=== PATIENT | male | born 1960 | race Hispanic/Latino ===

== ENCOUNTER 2023-03-31 07:36 | Day surgery (SDC) | payer OTHER, SELFPAY ==
[2023-02-20 15:02] VITALS: BMI 31.1
[2023-03-17 10:55] VITALS: BMI 30.6
--- NOTE | 2023-03-28 16:50 | PM.HPGS ---
History of Present Illness History of Present Illness Consent: Risks, benefits, and alternatives have been discussed and questions answered. Patient agrees to proceed with procedure. Chief complaint: History of Colon Polyps Narrative: Ryan Horton is a 63 year old male Referred for colon cancer screening. He has a history of polyps. His last colonoscopy was 5 years ago, at which time 4 polyps were removed Review of Systems Review of Systems: All systems reviewed & are unremarkable except as noted in HPI and below PMFSH Past Medical History Medical History Diabetes Hyperlipidemia Social History Social History Smoking status: Never smoker Alcohol intake: current Substance use: never Substance use type: does not use Living arrangements: with family Spiritual care concerns: No Meds Home Medications and Allergies Home Medications Medication Instructions Recorded Confirmed Type atorvastatin 40 mg tablet 40 mg PO DAILY 03/17/23 03/31/23 History celecoxib 200 mg capsule 200 mg PO DAILY 03/17/23 03/31/23 History metformin 500 mg tablet 500 mg PO BID 03/17/23 03/31/23 History venlafaxine 150 mg 150 mg PO DAILY 03/17/23 03/31/23 History capsule,extended release 24 hr Allergies Allergy/AdvReac Type Severity Reaction Status Date / Time No Known Allergies Allergy Verified 03/31/23 08:14 Exam Resp: Auscultation: clear to auscultation bilaterally Cardio: Rate: regular rate Rhythm: regular rhythm GI: GI Palp: Yes Soft to palpation and No Tenderness to palpation present (GI) Assessment and Plan Assessment and plan (1) Colon cancer screening: Code(s): Z12.11 - Encounter for screening for malignant neoplasm of colon Status: Acute Assessment and Plan: Colonoscopy with possible biopsy or polypectomy or cautery or injection of substances.
--- NOTE | 2023-03-31 06:55 | P.PNAN_ITS ---
Anes - Initial Pre Proc Eval Procedure: Operation Date: 03/31/23 09:30 Proposed Procedures p Diagnostic Colonoscopy - Adams Delarosa MD Date/Time: 03/31/23 06:55 Surgeon: Adams Delarosa MD Pre Op Diagnosis: History of Colon Polyps Patient Data Age: 63 Gender: M Height: 1.75 m Weight: 94 kg Allergies Allergy/AdvReac Type Severity Reaction Status Date / Time No Known Allergies Allergy Verified 03/31/23 08:14 Home Medications Medication Instructions Recorded Confirmed Type atorvastatin 40 mg tablet 40 mg PO DAILY 03/17/23 03/31/23 History celecoxib 200 mg capsule 200 mg PO DAILY 03/17/23 03/31/23 History metformin 500 mg tablet 500 mg PO BID 03/17/23 03/31/23 History venlafaxine 150 mg 150 mg PO DAILY 03/17/23 03/31/23 History capsule,extended release 24 hr Patient hx anesthesia problems: none Family hx anesthesia problems: none Results Review: All pre-operative results and documents have been reviewed as part of the pre- operative evaluation. PMFSH Past Medical History Medical History Diabetes Hyperlipidemia Social History Social History Smoking status: Never smoker Alcohol intake: current Substance use: never Substance use type: does not use Living arrangements: with family Spiritual care concerns: No Anes - Eval Final PreProcedure Day of Procedure 03/31/23 06:55 Patient weight: obese Heart: regular rate and rhythm Lungs: clear to auscultation Airway: Mallampati scale class II Neurological: alert and oriented Last oral intake: >/= 8 hours ASA classification: III Emergent: no Anesthetic plan: proceed Anesthesia type and monitoring: general GIVS and standard monitoring Results Review: All pre-operative results and documents have been reviewed as part of the pre- operative evaluation. Informed Consent: The patient's anesthetic plan and its attendant risks and benefits were discussed with the patient/family/POA. Questions were solicited and answers provided to the satisfaction of the patient/family/POA.
[2023-03-31 08:16] VITALS: BP 134/94; PULSE 95; RESP 16; TEMP 36.9; O2SAT 96
[2023-03-31 09:01] LABS: Glucose Point of Care 107 mg/dl (65-105)
[2023-03-31] MEDS: LACTATED RINGERS 1,000 ML 150 ML IV CONT (09:07)
[2023-03-31 09:24] VITALS: BP 95/65; PULSE 93; RESP 16; O2SAT 93
[2023-03-31 09:34] VITALS: BP 104/68; PULSE 87; RESP 18; O2SAT 95
[2023-03-31 09:44] VITALS: BP 126/74; PULSE 78; RESP 16; O2SAT 98
--- NOTE | 2023-03-31 12:04 | WPDANESPN ---
Anes - Prog Note Post-Op Date/Time: 03/31/23 12:04 Cardiovascular status: normal Respiratory status: normal Airway patency: baseline Mental status: baseline Post-Op hydration status: normal Vital Signs: Last Vital Signs Temp 36.9 C 03/31/23 08:16 Pulse 78 03/31/23 09:44 Resp 16 03/31/23 09:44 BP 126/74 03/31/23 09:44 Pulse Ox 98 03/31/23 09:44 O2 Del Method Room Air 03/31/23 09:44 Pain Score (VAS): 0 I/O: Intake & Output 03/30/23 03/31/23 03/31/23 23:59 07:59 15:59 Intake Total 400 Balance 400 03/31/23 08:27 POC Capillary Glucose 107 H Post-procedural complaints: none Patient Feedback: Patient satisfied with anesthetic care. Other Findings: Patient vital signs back to baseline. Patient denies nausea and vomiting. Patient's pain under control. Patient OK for discharge.
== END 2023-03-31 10:05 | disposition home or self-care (01) ==
PROVIDERS: PCP Internal Medicine; Visit Provider Internal Medicine Gastroenterology
PROC: 0DJD8ZZ Inspection of Lower Intestinal Tract, Via Natural or Artificial Opening Endoscopic (ICD-10-PCS; CPT 45378; principal; 2023-03-31 09:30)
DX: Z12.11 Encounter for screening for malignant neoplasm of colon (principal)
CPT/HCPCS: 45378

== ENCOUNTER 2024-11-29 16:12 | Outpatient (CLI) | payer MEDICARE, SELFPAY ==
--- NOTE | ~2024-11-29 | US_ITS ---
EXAMINATION: US scrotum doppler DATE: 11/29/2024 16:53 INDICATION: Palpable abnormality at the scrotum. Other specified disorders of female genitals. TECHNIQUE: Testicular sonogram utilizing grayscale and Doppler COMPARISON: None. FINDINGS: The right testis measures 4.0 x 1.7 x 2.9 cm. The left testis measures 3.6 x 2.2 x 2.6 cm. Symmetric normal grayscale appearance to both testes. There is normal vascular flow to both testes. 3 mm anecho ic right epididymal cyst. The right epididymis is otherwise normal with normal vascular flow. The lef t epididymis is normal with normal vascular flow. There is no hydrocele. Asymmetric mild right varico kathy. IMPRESSION: 1. 3 mm right epididymal cyst which could potentially represent the reported palpable abnormality of concern. Otherwise normal bilateral testes and epididymides with no other masses or abnormal fluid c ollections identified. 2. Asymmetric mild right varicocele. Could consider ultrasound or CT of the abdomen to assess for pot ential retroperitoneal masses or lymphadenopathy impinging along the more proximal right gonadal vein . Reviewed, dictated and finalized at location B. IMPRESSION: 1. 3 mm right epididymal cyst which could potentially represent the reported p alpable abnormality of concern. Otherwise normal bilateral testes and epididymi danika with no other masses or abnormal fluid collections identified. 2. Asymmetric mild right varicocele. Could consider ultrasound or CT of the abd omen to assess for potential retroperitoneal masses or lymphadenopathy impingin g along the more proximal right gonadal vein.
--- OUTSIDE RECORDS SUMMARY | 2024-11-29 18:28 | XMS_ITS | Data Portability ---
Author Organization [place] - [facility], Main Office Address [address] [place] [address] Assessment Encounter Date Assessment Date Assessment LastModified by Organization Details LastModified Time 07/24/2023 07/24/2023 This note is dictated and transcribed by [employer]lex Direct Software. Confidential Secretary variances may occur. Despite proofreading, typographical errors may occur. Occasional wrong-word or 'znmca-z-wcei' substitutions may have occurred due to the inherent limitations of voice recording. Read the chart carefully and recognize, using context, where substitutions have occurred. [email or web address] Not available 07/24/2023 10:23:13 Plan of Treatment Reminders Order Date Submit Date Provider Last Modified By Organization Details Last Modified Time Details Appointments None recorded. Lab lipid panel, serum [email or web address] [place] [address] - Outpatient Lab, [address] [place], [address], 4 10:16:37 CMP, serum or plasma [email or web address] [place] [address] Outpatient Lab, [address] [place], [address], 4 10:16:38 CBC w/ auto diff [email or web address] Outpatient Lab, [address] [place], [address], 4 10:16:38 glycohemogl obin, total, blood [id number] Outpatient Lab, [address] [place], [address], 4 10:16:37 HbA1c (hemoglobin A1c), blood [id number] [place] [address] Outpatient Lab, [address] [place], [address], 4 12:05:54 microalbumi n/creatinin e, mass ratio, urine [id number] [place] [address] Outpatient Lab, [address] [place], [address], 4 12:05:54 CMP, serum or plasma [id number] [place] [address] Outpatient Lab, [address] [place], [address], 4 12:05:53 CBC w/ auto diff [email or web address] [place] [address] Outpatient Lab, [address] [place], [address], 4 12:05:53 T4, free, serum [email or web address] [place] [address] Outpatient Lab, [address] [place], [address], 4 12:05:54 TSH, serum or plasma [id number] [place] [address] Outpatient Lab, [address] [place], [address], 4 12:05:54 lipid panel, serum [id number] [place] [address] Outpatient Lab, [address] [place], [address], 4 12:05:54 PSA, serum or plasma 2023 024 [email or web address] [facility] - Outpatient Lab, [address], [place], [address], 4 12:05:[address] referral - *PLEASE CALL PT TO SCHEDULE APPT...THAN K YOU!* 2022 023 [email or web address] Katina Guaman MD (Dermatology) , [address], [facility], [place], [address], 4 08:30:53 Procedures None recorded. Surgeries None recorded. Imaging None recorded. Medication Orders triamcinolo ne acetonide 0.1 % topical cream 2022 023 [facility]/Pharmacy #[id number], [address], [place], [address], 3 10:10:35 ketoconazol e 2 % topical cream 2022 023 [id number], [address], [place], [address], 3 10:38:21 miconazole nitrate 2 % topical powder [email or web address]/Pharmacy #[id number], [address], [place], [address], 3 10:38:28 Patient TargetsNo targets recorded. Patient Instructions Encounter Date Encounter Id Patient Instructions Last Modified By Organization Details Last Modified Time 08/07/2023 [id number] advance care planning: care instructions [email or web address] Not available 08/07/2023 10:52:28 advance directiv es: care instructions [email or web address] Not available 08/07/2023 10:52:28 [place] Advance Directives Not available 08/07/2023 10:52:28 risk assessment* RICKEY Not available 08/07/2023 15:25:18 Personalized Hea lt Plan and Screening Recommendations Advance Directives - Do you have one? No Advance Directives - Do we have your advance directive on file in your health record? Primary Prevention/Interven tion (prevents or decreases the chance of common diseases from occurring) Smoking Risk: Smoker Refer to attached smoking cessation handouts Refer to attached handouts and prescription will be sent to pharmacy Continue to consider stopping smoking and call if we can assist you Alcohol Misuse Screening: Negative Weight: Appropriate Overwei ght continue your current weight loss efforts try to lose 5% of your body weight try to lose 10% of your body weight Physical activity: Need more exercise/physical activity Nutrition: Good Average Fall Risk (screened today): Low Vaccines Pneumococcal: Influenza: Ordered Recommended today Chronic Disease Risks Stroke: Low Risk Intermediate Risk I have no recommendations Act corazon diagnosis, Continue current treatment plan Heart Attack: Low risk Intermediate Risk I have no recommendations Act corazon diagnosis, Continue current treatment plan Clogging of the Arteries: Low risk Intermediate Risk I have no recommendations Act corazon diagnosis, Continue current treatment plan Diabetes: Low Risk Intermediate Risk Active diagnosis, Continue current treatment plan Secondary Prevention/Interven tion (detects treatable diseases before they may cause symptoms, disability, or ) Prostate Cancer Screening: Colon Cancer Screening: Colonoscopy Date Screening Last Performed: __2022 Eye Disease Screening: Dementia Risk: Low I have no recommendations Depression Screening: Negative Active diagnosis, Continue current treatment plan [email or web address] Not available 08/07/2023 10:47:46 Wellness evaluat ion risk assessment stable. Follow-up for type 2 diabetes, hyperlipidemia, mild depression and obesity class one. Clinically stable. Will hold on any blood work at this time. Had blood work performed back in February. Cholesterol is 143 HDL 45 LDL of 80. The hemoglobin A1c was 5.4. Continue on current Rx did get a flu shot today. Follow-up in six months. Portions of the record may have been created with voice recognition software. Occasional wrong-word or s ound-a-like substitutions may have occurred due to the inherent limitations of voice recognition software. Read the chart carefully and recognize, using context, where substitutions have occurred. Need to get a copy of the colonoscopy done at [facility] earlier in the year. [email or web address] Not available 08/07/2023 10:52:10 01/26/2024 [id number] Follow-up for hyperlipidemia, type 2 diabetes, depression all clinically stable. Also followed up for obesity class one. Will need blood work in form of CBC, CMP, lipid, thyroid,HAIC,Micro A and PSA level. If stated to the patient should have these done at the end of February since that would be a year. Otherwise is clinically doing well. Will follow-up in six months. Is due for colonoscopy. Needs a follow-up colonoscopy Next Appointment: 6 Months Approximate Date: 07/24/2024 Portions of the record may have been created with voice recognition software. Occasional wrong-word or s ound-a-like substitutions may have occurred due to the inherent limitations of voice recognition software. Read the chart carefully and recognize, using context, where substitutions have occurred. [email or web address] Not available 01/26/2024 12:09:05 08/12/2024 [id number] Llow-up for diabetes mellitus type 2, hyperlipidemia, depressive disorder all clinically stable. Overall is doing well. Check blood work consisting of a hemoglobin A1c, lipid panel, CMP and CBC. Continue on current Rx follow-up in six months. Follow Up: 6 Months Approximate Date: 02/08/2025 Portions of the record may have been created with voice recognition software. Occasional wrong-word or s ound-a-like substitutions may have occurred due to the inherent limitations of voice recognition software. Read the chart carefully and recognize, using context, where substitutions have occurred. Created: Bebeto Clarke M.D. 08.12.2024 10:31 AM [email or web address] Not available 08/12/2024 11:31:45 11/18/2024 [id number] Testicular mass, hyperlipidemia, diabetes obesity class one. Will get an ultrasound of the testicle to rule out any other abnormalities. Otherwise is clinically stable. Already has a follow-up appointment. Additional Orders - Directives - Recommendations 1. Ultrasound of testicle and scrotal area for right scrotal and epididymal mass Keep Appointment: [facility] 02 10 2025 10:00 AM [place] Portions of record are template driven. When necessary additional context will be provided. Additionally some portions have been created with voice recognition software. Occasional wrong-word or s ound-a-like substitutions may have occurred due to the inherent limitations of voice recognition software. Read the chart carefully and recognize, using context, where substitutions may have occurred. Created: Bebeto Clarke M.D. 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 Referral for X erosis due to atopic dermatitis *PLEASE CALL PT TO SCHEDULE APPT...THANK YOU!* Referring Physician: Khari Dozier, Podiatric Surgery, Encounter Date: 07/24/2023 Results Created Date Observation Date Name Description Value Unit Range Abnormal Flag Note LastModifiedBy Organization Detail LastModifiedTime 06/26/2007/29/2023 FUNGU S CULTU RE WITH STAIN fungus stain Final report abnormal Not Available [facility] (Lab) [address] [place], [address], 07/29/2023 12:12:17 06/26/2007/29/2023 FUNGU S CULTU RE WITH STAIN result 1 Hyphae observ ed abnormal Not Available [facility] (Lab) [address] [place], [address], 07/29/2023 12:12:17 06/26/2007/29/2023 FUNGU S CULTU RE WITH STAIN culture, fungal Final report Not Available [facility] (Lab) [address] [place], [address], 07/29/2023 12:12:17 06/26/2007/29/2023 FUNGU S CULTU RE WITH STAIN result 1 Commen t abnormal No yeast or mold isola rangel after 4 weeks . Perfo [place]med at: [place] [address] Lab Direc tor: Soto campbell PhD, Phone : [phone] Not Available [facility] (Lab) [address] [place], [address], 07/29/2023 12:12:17 02/17/2002/18/2024 LIPID PANEL , STAND EDNA cholesterol, total 149 mg/dL <200 normal Not Available [facility] [address], [address], 02/18/2024 13:16:49 02/17/20 24 02/18/2024 LIPID PANEL , STAND EDNA HDL cholesterol 46 mg/dL > or = 40 normal Not Available [address], [address], 02/18/2024 13:16:49 02/17/20 24 02/18/2024 LIPID PANEL , STAND EDNA triglyceride s 126 mg/dL <150 normal Not Available [facility] [address], [address], 02/18/2024 13:16:49 02/17/20 24 02/18/2024 LIPID PANEL , STAND EDNA LDL-choleste rol 80 mg/dL _(zhanna c) normal Refer ence range : <100 Gypsy able range <100 mg/dL for prima ry preve ntion ; <70 mg/dL for patie nts with CHD or diabe tic patie nts with > or = 2 CHD risk facto rs. LDL-C is now calcu lated using the Claudia jay-Hop kins calcu missael n, which is a valid ated novel metho d provi ding josep r accur acy than the Fried blaze equat ion in the estim ation of LDL-C . Claudia jay SS et al. EDWARD. 2013; 310(1 9): 2061- 2068 (http ://ed ucati on.Qu Sylvie SourceThought. com/f aq/FA Q164) Not Available [address], [address], 02/18/2024 13:16:49 02/17/20 24 02/18/2024 LIPID PANEL , STAND EDNA chol/HDLC ratio 3.2 (calc ) <5.0 normal Not Available [facility] [address], [address], 02/18/2024 13:16:49 02/17/20 24 02/18/2024 LIPID PANEL , STAND EDNA non HDL cholesterol 103 mg/dL _(zhanna c) <130 normal For patie nts with diabe carmen plus 1 major ASCVD risk facto r, treat ing to a non-H DL-C goal of <100 mg/dL (LDL- C of <70 mg/dL ) is truong campos n. Not Available [place] [address] [place], [address], 02/18/2024 13:16:49 02/17/20 24 02/18/2024 ALBUM IN, RANDO M URINE W/CRE ATINI NE creatinine, random urine 126 mg/dL 20-320 normal Not Available [place] [address] [address], [place], [address], 02/18/2024 13:16:51 02/17/20 24 02/18/2024 ALBUM IN, RANDO M URINE W/CRE ATINI NE albumin, urine 0.6 mg/dL see note: normal Refer ence Range : Refer ence Range Not estab lishe d Not Available [place] [address] [facility] [place], [address], 02/18/2024 13:16:51 02/17/20 24 02/18/2024 ALBUM IN, RANDO M URINE W/CRE ATINI NE albumin/crea tinine ratio, random urine 5 mg/g_ creat <30 normal The ADA defin es abnor malit ies in album in excre tion as follo ws: Album inuri a Categ ory Resul t (mg/g creat inine ) Deepthi l to Mildl y incre ased <30 Moder ately incre ased 30-29 9 Sever loyda incre ased > OR = 300 The ADA recom mends that at least two of three speci mens colle cted withi n a 3-6 month perio d be abnor mal befor e consi uma g a patie nt to be withi n a diagn ostic categ ory. Not Available [place] [address] [place], [address], 02/18/2024 13:16:51 02/17/20 24 02/18/2024 COMPR EHENS CORAZON METAB OLIC PANEL glucose 98 mg/dL 65-99 normal Fasti ng refer ence inter devyn Not Available [address], [address], 02/18/2024 13:16:52 02/17/20 24 02/18/2024 COMPR EHENS CORAZON METAB OLIC PANEL urea nitrogen (BUN) 11 mg/dL 7-25 normal Not Available [address], [address], 02/18/2024 13:16:52 02/17/20 24 02/18/2024 COMPR EHENS CORAZON METAB OLIC PANEL creatinine 0.73 mg/dL 0.70-1 .35 normal Not Available [address], [address], 02/18/2024 13:16:52 02/17/20 24 02/18/2024 COMPR EHENS CORAZON METAB OLIC PANEL eGFR 100 mL/mi n/1.7 3m2 > or = 60 normal Not Available [address], [address], 02/18/2024 13:16:52 02/17/20 24 02/18/2024 COMPR EHENS CORAZON METAB OLIC PANEL BUN/creatini ne ratio SEE NOTE: (calc ) 6-22 Not Repor rangel: BUN and Creat inine are withi n refer ence range . Not Available [address], [address], 02/18/2024 13:16:52 02/17/20 24 02/18/2024 COMPR EHENS CORAZON METAB OLIC PANEL sodium 140 mmol/ L 135-14 6 normal Not Available [address], [address], 02/18/2024 13:16:52 02/17/20 24 02/18/2024 COMPR EHENS CORAZON METAB OLIC PANEL potassium 4.0 mmol/ L 3.5-5. 3 normal Not Available [facility] [address] [place], [address], 02/18/2024 13:16:52 02/17/20 24 02/18/2024 COMPR EHENS CORAZON METAB OLIC PANEL chloride 103 mmol/ L 98-110 normal Not Available [address] [place], [address], 02/18/2024 13:16:52 02/17/20 24 02/18/2024 COMPR EHENS CORAZON METAB OLIC PANEL carbon dioxide 29 mmol/ L 20-32 normal Not Available [address], [address], 02/18/2024 13:16:52 02/17/20 24 02/18/2024 COMPR EHENS CORAZON METAB OLIC PANEL calcium 9.3 mg/dL 8.6-10 .3 normal Not Available [address], [address], 02/18/2024 13:16:52 02/17/20 24 02/18/2024 COMPR EHENS CORAZON METAB OLIC PANEL protein, total 6.8 g/dL 6.1-8. 1 normal Not Available [address], [address], 02/18/2024 13:16:52 02/17/20 24 02/18/2024 COMPR EHENS CORAZON METAB OLIC PANEL albumin 4.0 g/dL 3.6-5. 1 normal Not Available [address] [place], [address], 02/18/2024 13:16:52 02/17/20 24 02/18/2024 COMPR EHENS CORAZON METAB OLIC PANEL globulin 2.8 g/dL_ (calc ) 1.9-3. 7 normal Not Available [address], [address], 02/18/2024 13:16:52 02/17/20 24 02/18/2024 COMPR EHENS CORAZON METAB OLIC PANEL albumin/glob ulin ratio 1.4 (calc ) 1.0-2. 5 normal Not Available [address], [address], 02/18/2024 13:16:52 02/17/20 24 02/18/2024 COMPR EHENS CORAZON METAB OLIC PANEL bilirubin, total 0.7 mg/dL 0.2-1. 2 normal Not Available [address], [address], 02/18/2024 13:16:52 02/17/20 24 02/18/2024 COMPR EHENS CORAZON METAB OLIC PANEL alkaline phosphatase 113 U/L 35-144 normal Not Available [address], [address], 02/18/2024 13:16:52 02/17/20 24 02/18/2024 COMPR EHENS CORAZON METAB OLIC PANEL AST 17 U/L 10-35 normal Not Available [address], [address], 02/18/2024 13:16:52 02/17/20 24 02/18/2024 COMPR EHENS CORAZON METAB OLIC PANEL ALT 20 U/L 9-46 normal Not Available [address], [address], 02/18/2024 13:16:52 02/17/20 24 02/18/2024 CBC (INCL UDES DIFF/ PLT) white blood cell count 7.5 thous and/u L 3.8-10 .8 normal Not Available [address], [address], 02/18/2024 13:16:53 02/17/20 24 02/18/2024 CBC (INCL UDES DIFF/ PLT) red blood cell count 5.23 daquan on/uL 4.20-5 .80 normal Not Available [address], [address], 02/18/2024 13:16:53 02/17/20 24 02/18/2024 CBC (INCL UDES DIFF/ PLT) hemoglobin 16.4 g/dL 13.2-1 7.1 normal Not Available [address], [address], 02/18/2024 13:16:53 02/17/20 24 02/18/2024 CBC (INCL UDES DIFF/ PLT) hematocrit 50.3 % 38.5-5 0.0 high Not Available [address], [address], 02/18/2024 13:16:53 02/17/20 24 02/18/2024 CBC (INCL UDES DIFF/ PLT) MCV 96.2 fL 80.0-1 00.0 normal Not Available [address], [address], 02/18/2024 13:16:53 02/17/20 24 02/18/2024 CBC (INCL UDES DIFF/ PLT) MCH 31.4 pg 27.0-3 3.0 normal Not Available [address], [address], 02/18/2024 13:16:53 02/17/20 24 02/18/2024 CBC (INCL UDES DIFF/ PLT) MCHC 32.6 g/dL 32.0-3 6.0 normal Not Available [address], [address], 02/18/2024 13:16:53 02/17/20 24 02/18/2024 CBC (INCL UDES DIFF/ PLT) RDW 12.4 % 11.0-1 5.0 normal Not Available [address], [address], 02/18/2024 13:16:53 02/17/20 24 02/18/2024 CBC (INCL UDES DIFF/ PLT) platelet count 271 thous and/u L 140-40 0 normal Not Available [address], [address], 02/18/2024 13:16:53 02/17/20 24 02/18/2024 CBC (INCL UDES DIFF/ PLT) MPV 10.0 fL 7.5-12 .5 normal Not Available [address], [address], 02/18/2024 13:16:53 02/17/20 24 02/18/2024 CBC (INCL UDES DIFF/ PLT) absolute neutrophils 4553 cells /uL 1500-7 800 normal Not Available [address], [address], 02/18/2024 13:16:53 02/17/20 24 02/18/2024 CBC (INCL UDES DIFF/ PLT) absolute lymphocytes 1770 cells /uL 850-39 00 normal Not Available [address], [address], 02/18/2024 13:16:53 02/17/20 24 02/18/2024 CBC (INCL UDES DIFF/ PLT) absolute monocytes 698 cells /uL 200-95 0 normal Not Available [address], [address], 02/18/2024 13:16:53 02/17/20 24 02/18/2024 CBC (INCL UDES DIFF/ PLT) absolute eosinophils 428 cells /uL 15-500 normal Not Available [address], [address], 02/18/2024 13:16:53 02/17/20 24 02/18/2024 CBC (INCL UDES DIFF/ PLT) absolute basophils 53 cells /uL 0-200 normal Not Available [facility] [address] [address], [place], [address], 02/18/2024 13:16:53 02/17/20 24 02/18/2024 CBC (INCL UDES DIFF/ PLT) neutrophils 60.7 % normal Not Available [address], [address], 02/18/2024 13:16:53 02/17/20 24 02/18/2024 CBC (INCL UDES DIFF/ PLT) lymphocytes 23.6 % normal Not Available [facility] [address], [address], 02/18/2024 13:16:53 02/17/20 24 02/18/2024 CBC (INCL UDES DIFF/ PLT) monocytes 9.3 % normal Not Available [facility] [address], [address], 02/18/2024 13:16:53 02/17/20 24 02/18/2024 CBC (INCL UDES DIFF/ PLT) eosinophils 5.7 % normal Not Available [address], [address], 02/18/2024 13:16:53 02/17/20 24 02/18/2024 CBC (INCL UDES DIFF/ PLT) basophils 0.7 % normal Not Available [address], [address], 02/18/2024 13:16:53 02/17/20 24 02/18/2024 T4, FREE T4, free 1.0 NG/dL 0.8-1. 8 normal Not Available [address], [address], 02/18/2024 13:16:55 02/17/20 24 02/18/2024 PSA, TOTAL PSA, total 0.85 NG/mL < or = 4.00 normal The total PSA value from this assay syste m is stand ardiz ed again st the WHO stand edna. The test resul t will be appro ximat loyda 20% lower when chad red to the equim olar- stand ardiz ed total PSA (Tejada man Coult er). Chad rison of seria l PSA resul ts shoul d be inter prete d with this fact in mind. This test was perfo rmed using the Sieme ns chemi lumin escen t metho d. Value s obtai janette from diffe rent assay metho ds canno t be used inter stewart eably . PSA level s, regar dless of value , shoul d not be inter prete d as absol nondalton evide nce of the prese nce or absen ce of disea se. Not Available [facility] [address] [place], [address], 02/18/2024 13:16:56 02/17/2002/18/2024 TSH TSH 1.84 mIU/L 0.40-4 .50 normal Not Available [facility] [address] [place], [address], 02/18/2024 13:16:57 02/17/2002/18/2024 HEMOG LOBIN A1C hemoglobin A1C 5.8 %_of_ total _HGB <5.7 high For someo ne witho ut known diabe carmen, a hemog lobin A1c value betwe en 5.7% and 6.4% is consi stent with predi abete s and shoul d be confi rmed with a follo w-up test. For someo ne with known diabe carmen, a value <7% indic ates that their diabe carmen is well contr olled . A1c targe ts shoul d be indiv idual ized based on durat ion of diabe carmen, age, comor bid condi tions , and other consi derat ions. This assay resul t is consi stent with an incre ased risk of diabe carmen. Curre ntly, no conse nsus exist s regar ding use of hemog lobin A1c for diagn osis of diabe carmen for child maico. This test was perfo rmed on the Chris dorian c503 platf orm. Effec tive , a terry garcia in test platf orms from the [facility] Ar[facility] tect to the Chris dorian c503 may have shift ed HbA1c resul ts chad red to histo rical resul ts. Based on labor atory valid ation testi ng condu cted at [facility] , the Chris platf orm relat corazon to the Abbot t platf orm had an avera ge incre ase in HbA1c value of < or = 0.3%. This diffe rence is withi n accep rangel varia bilit y estab lishe d by the Gloria fang Glyco hemog lobin Stand ardiz ation Progr am. Note that not all indiv idual s will have had a shift in their resul ts and direc t chad rison s betwe en histo rical and curre nt resul ts for testi ng condu cted on diffe rent platf orms is not recom olivier d. Not Available [facility] [place] [address] [place], [address], 02/18/2024 13:16:58 08/30/20 24 08/31/2024 LIPID PANEL , STAND EDNA cholesterol, total 161 mg/dL <200 normal Not Available [facility] [place] [address] [place], [address], 08/31/2024 09:25:31 08/30/20 24 08/31/2024 LIPID PANEL , STAND EDNA HDL cholesterol 49 mg/dL > or = 40 normal Not Available [facility] [place] [address] [place], [address], 08/31/2024 09:25:31 08/30/20 24 08/31/2024 LIPID PANEL , STAND EDNA triglyceride s 75 mg/dL <150 normal Not Available [facility] [address] [place], [address], 08/31/2024 09:25:31 08/30/20 08/31/2024 LIPID PANEL , STAND EDNA LDL-choleste rol 96 mg/dL _(zhanna c) normal Refer ence range : <100 Gypsy able range <100 mg/dL for prima ry preve ntion ; <70 mg/dL for patie nts with CHD or diabe tic patie nts with > or = 2 CHD risk facto rs. LDL-C is now calcu lated using the Claudia n-Hop kins calcu missael n, which is a valid ated novel metho d provi ding josep r accur acy than the Fried blaze equat ion in the estim ation of LDL-C . Claudia n SS et al. EDWARD. 2013; 310(1 9): 2061- 2068 (http ://ed ucati on.AdScore. com/f aq/FA Q164) Not Available [facility] [place] [address] [place], [address], 08/31/2024 09:25:31 08/30/20 24 08/31/2024 LIPID PANEL , STAND EDNA chol/HDLC ratio 3.3 (calc ) <5.0 normal Not Available [facility] [place] [address] [address] , [place], [address], 08/31/2024 09:25:31 08/30/20 24 08/31/2024 LIPID PANEL , STAND EDNA non HDL cholesterol 112 mg/dL _(zhanna c) <130 normal For patie nts with diabe carmen plus 1 major ASCVD risk facto r, treat ing to a non-H DL-C goal of <100 mg/dL (LDL- C of <70 mg/dL ) is consi dered a thera peuti c optio n. Not Available [facility] [address] [place], [address], 08/31/2024 09:25:31 08/30/20 24 08/31/2024 COMPR EHENS CORAZON METAB OLIC PANEL glucose 98 mg/dL 65-99 normal Fasti ng refer ence inter devyn Not Available [facility] [place] [address] [place], [address], 08/31/2024 09:25:32 08/30/20 24 08/31/2024 COMPR EHENS CORAZON METAB OLIC PANEL urea nitrogen (BUN) 20 mg/dL 7-25 normal Not Available [address], [address], 08/31/2024 09:25:32 08/30/20 24 08/31/2024 COMPR EHENS CORAZON METAB OLIC PANEL creatinine 0.73 mg/dL 0.70-1 .35 normal Not Available [address], [address], 08/31/2024 09:25:32 08/30/20 24 08/31/2024 COMPR EHENS CORAZON METAB OLIC PANEL eGFR 100 mL/mi n/1.7 3m2 > or = 60 normal Not Available [address], [address], 08/31/2024 09:25:32 08/30/20 24 08/31/2024 COMPR EHENS CORAZON METAB OLIC PANEL BUN/creatini ne ratio SEE NOTE: (calc ) 6-22 Not Repor rangel: BUN and Creat inine are withi n refer ence range . Not Available [address], [address], 08/31/2024 09:25:32 08/30/20 24 08/31/2024 COMPR EHENS CORAZON METAB OLIC PANEL sodium 137 mmol/ L 135-14 6 normal Not Available [address], [address], 08/31/2024 09:25:32 08/30/20 24 08/31/2024 COMPR EHENS CORAZON METAB OLIC PANEL potassium 4.3 mmol/ L 3.5-5. 3 normal Not Available [address], [address], 08/31/2024 09:25:32 08/30/20 24 08/31/2024 COMPR EHENS CORAZON METAB OLIC PANEL chloride 104 mmol/ L 98-110 normal Not Available [address], [address], 08/31/2024 09:25:32 08/30/20 24 08/31/2024 COMPR EHENS CORAZON METAB OLIC PANEL carbon dioxide 26 mmol/ L 20-32 normal Not Available [address], [address], 08/31/2024 09:25:32 08/30/20 24 08/31/2024 COMPR EHENS CORAZON METAB OLIC PANEL calcium 9.1 mg/dL 8.6-10 .3 normal Not Available [address], [address], 08/31/2024 09:25:32 08/30/20 24 08/31/2024 COMPR EHENS CORAZON METAB OLIC PANEL protein, total 6.9 g/dL 6.1-8. 1 normal Not Available [address], [address], 08/31/2024 09:25:32 08/30/20 24 08/31/2024 COMPR EHENS CORAZON METAB OLIC PANEL albumin 4.1 g/dL 3.6-5. 1 normal Not Available [address], [address], 08/31/2024 09:25:32 08/30/20 24 08/31/2024 COMPR EHENS CORAZON METAB OLIC PANEL globulin 2.8 g/dL_ (calc ) 1.9-3. 7 normal Not Available [address], [address], 08/31/2024 09:25:32 08/30/20 24 08/31/2024 COMPR EHENS CORAZON METAB OLIC PANEL albumin/glob ulin ratio 1.5 (calc ) 1.0-2. 5 normal Not Available [address], [address], 08/31/2024 09:25:32 08/30/20 24 08/31/2024 COMPR EHENS CORAZON METAB OLIC PANEL bilirubin, total 0.6 mg/dL 0.2-1. 2 normal Not Available [address], [address], 08/31/2024 09:25:32 08/30/20 24 08/31/2024 COMPR EHENS CORAZON METAB OLIC PANEL alkaline phosphatase 113 U/L 35-144 normal Not Available [facility] [employer] [address], [address], 08/31/2024 09:25:32 08/30/20 24 08/31/2024 COMPR EHENS CORAZON METAB OLIC PANEL AST 18 U/L 10-35 normal Not Available [address], [address], 08/31/2024 09:25:32 08/30/20 24 08/31/2024 COMPR EHENS CORAZON METAB OLIC PANEL ALT 28 U/L 9-46 normal Not Available [address], [address], 08/31/2024 09:25:32 08/30/20 24 08/31/2024 CBC (INCL UDES DIFF/ PLT) white blood cell count 7.5 thous and/u L 3.8-10 .8 normal Not Available [address], [address], 08/31/2024 09:25:33 08/30/20 24 08/31/2024 CBC (INCL UDES DIFF/ PLT) red blood cell count 5.36 daquan on/uL 4.20-5 .80 normal Not Available [address], [address], 08/31/2024 09:25:33 08/30/20 24 08/31/2024 CBC (INCL UDES DIFF/ PLT) hemoglobin 17.0 g/dL 13.2-1 7.1 normal Not Available [address], [address], 08/31/2024 09:25:33 08/30/20 24 08/31/2024 CBC (INCL UDES DIFF/ PLT) hematocrit 51.4 % 38.5-5 0.0 high Not Available [address], [address], 08/31/2024 09:25:33 08/30/20 24 08/31/2024 CBC (INCL UDES DIFF/ PLT) MCV 95.9 fL 80.0-1 00.0 normal Not Available [address], [address], 08/31/2024 09:25:33 08/30/20 24 08/31/2024 CBC (INCL UDES DIFF/ PLT) MCH 31.7 pg 27.0-3 3.0 normal Not Available [address], [address], 08/31/2024 09:25:33 08/30/20 24 08/31/2024 CBC (INCL UDES DIFF/ PLT) MCHC 33.1 g/dL 32.0-3 6.0 normal For adult s, a sligh t decre ase in the calcu lated MCHC value (in the range of 30 to 32 g/dL) is most likel y not clini vasquez signi kelley t; nirmala er, it shoul d be inter prete d with cauti on in [facility] n with other red cell yaneth eters and the patie nt's clini zhanna condi tion. Not Available [address], [address], 08/31/2024 09:25:33 08/30/20 24 08/31/2024 CBC (INCL UDES DIFF/ PLT) RDW 12.4 % 11.0-1 5.0 normal Not Available [address], [address], 08/31/2024 09:25:33 08/30/20 24 08/31/2024 CBC (INCL UDES DIFF/ PLT) platelet count 263 thous and/u L 140-40 0 normal Not Available [address], [address], 08/31/2024 09:25:33 08/30/20 24 08/31/2024 CBC (INCL UDES DIFF/ PLT) MPV 10.0 fL 7.5-12 .5 normal Not Available [address], [address], 08/31/2024 09:25:33 08/30/20 24 08/31/2024 CBC (INCL UDES DIFF/ PLT) absolute neutrophils 4560 cells /uL 1500-7 800 normal Not Available [address], [address], 08/31/2024 09:25:33 08/30/20 24 08/31/2024 CBC (INCL UDES DIFF/ PLT) absolute lymphocytes 1778 cells /uL 850-39 00 normal Not Available [address], [address], 08/31/2024 09:25:33 08/30/20 24 08/31/2024 CBC (INCL UDES DIFF/ PLT) absolute monocytes 683 cells /uL 200-95 0 normal Not Available [address], [address], 08/31/2024 09:25:33 08/30/20 24 08/31/2024 CBC (INCL UDES DIFF/ PLT) absolute eosinophils 428 cells /uL 15-500 normal Not Available [address], [address], 08/31/2024 09:25:33 08/30/20 24 08/31/2024 CBC (INCL UDES DIFF/ PLT) absolute basophils 53 cells /uL 0-200 normal Not Available [address], [address], 08/31/2024 09:25:33 08/30/20 24 08/31/2024 CBC (INCL UDES DIFF/ PLT) neutrophils 60.8 % normal Not Available [address], [address], 08/31/2024 09:25:33 08/30/20 24 08/31/2024 CBC (INCL UDES DIFF/ PLT) lymphocytes 23.7 % normal Not Available [facility] [address], [address], 08/31/2024 09:25:33 08/30/20 24 08/31/2024 CBC (INCL UDES DIFF/ PLT) monocytes 9.1 % normal Not Available [facility] [address], [address], 08/31/2024 09:25:33 08/30/20 24 08/31/2024 CBC (INCL UDES DIFF/ PLT) eosinophils 5.7 % normal Not Available [address], [address], 08/31/2024 09:25:33 08/30/20 24 08/31/2024 CBC (INCL UDES DIFF/ PLT) basophils 0.7 % normal Not Available [facility] [address], [address], 08/31/2024 09:25:33 08/30/20 24 08/31/2024 HEMOG LOBIN A1C hemoglobin A1C 5.8 %_of_ total _HGB <5.7 high For someo ne witho ut known diabe carmen, a hemog lobin A1c value betwe en 5.7% and 6.4% is consi stent with predi abete s and shoul d be confi rmed with a follo w-up test. For someo ne with known diabe carmen, a value <7% indic ates that their diabe carmen is well contr olled . A1c targe ts shoul d be indiv idual ized based on durat ion of diabe carmen, age, comor bid condi tions , and other consi derat ions. This assay resul t is consi stent with an incre ased risk of diabe carmen. Curre ntly, no conse nsus exist s regar ding use of hemog lobin A1c for diagn osis of diabe carmen for child maico. Not Available [facility] [id number] [place] [address], [address], 08/31/2024 09:25:34 Result Notes None recorded. Problems Name Problem SNOMED Code Status Onset Date Resolution Date Notes Provider Name and Address Organization Details Recorded Time Venous varices 968444724 Active 2018 Not Available [facility] 3 08:14:29 Venous varices 230575384 Active 2018 Not Available [facility] 3 08:14:29 Acute sinusitis 10115243 Active 2021 Not Available [facility] 3 08:14:29 Peripheral venous insufficie ncy 82752575 Active 2018 Not Available [facility] 3 08:14:29 Osteoarthr itis of knee 124599843 Active 2018 Not Available [facility] 3 08:14:29 Pure hyperchole sterolemia 133102935 Active Not Available [facility] 3 08:14:29 Finding of body mass index 625041276 Active 2021 Not Available [facility] 3 08:14:29 Depressive disorder 11138191 Active Not Available [facility] 3 08:14:29 Impaired fasting glycemia 274968741 Active Not Available [facility] 3 08:14:30 Illness 19653161 Active Not Available [facility] 3 08:14:30 Osteoarthr itis 054438434 Active Not Available [facility] 3 08:14:30 Localized superficia l swelling of skin 303851326 Active Not Available [facility] 3 08:14:30 Type 2 diabetes mellitus 56458230 Active 2016 Not Available [facility] 3 08:14:30 Carpal tunnel syndrome 85393528 Active Not Available [facility] 3 08:14:30 Sebaceous cyst of scrotum 43200695 Active 2016 Not Available [facility] 3 08:14:30 Obese class I 5441327931433 07 Active 2022 Not Available [facility] 3 08:14:30 Erectile dysfunctio n 160981259 Active 2022 Not Available [facility] 3 08:14:30 Arthritis 6706989 Active 2022 Not Available [facility] 3 08:14:30 Diabetes mellitus 21801559 Active 2022 Not Available [facility] 3 08:14:30 Tinea pedis 9134498 Active 2022 Not Available [facility] 3 08:14:30 Callosity on toe 366564655 Active 2022 Not Available [facility] 3 08:14:29 Onychomyco sis of toenails 074608859 Active 2022 Not Available [facility] 3 08:14:30 Hammer toe 468723025 Active 2022 Not Available [facility] 3 08:14:29 Xerosis due to atopic dermatitis 383198222 Active 2022 Not Available [facility] 3 08:14:30 Acute bronchitis 38850339 Active 2023 Bebeto Clarke MD [address], [place] [address], [place], [address] , [facility] 4 12:47:24 Disorder of prostate 12273060 Active 2023 Bebeto Clarke MD [address], [address], [place], [address] , [facility] 4 12:08:55 Testicular mass 93822627 Active 2024 Bebeto Clarke MD [address], [address], [place], [address] , [facility] 5 12:27:54 Scrotal mass 44293706 Active 2024 Latricia weiss, [facility] 5 12:37:31 Problem Notes None recorded. Procedures Surgical History Date Name Laterality Status Provider Name and Address Organization Details Recorded Time 08/07/20 Advanced Care Planning completed Marii Zuniga RN [facility] 08/07/2023 10:44:05 05/15/20 23 Nail Debridement completed Khari Dozier DPM [address], [facility] [address], [place], [address], [facility] 05/15/2023 12:23:09 05/15/20 23 Callus Debridement, One completed Khari Dozier DPM [address], [facility] [address], [place], [address], [facility] 05/15/2023 12:23:01 Knee Replacement completed Cata Berg [facility] 05/15/2023 11:44:43 Carpal tunnel completed Cata Berg [facility] 05/15/2023 11:44:58 Imaging Results None recorded. Procedure Notes None recorded. Medical Equipment None Reported. Allergies No known drug allergies Medications Name Sig Start Date Stop Date Status Note LastModified by Organization Details LastModified Time Prescriptio n - Prior Authorizati on Request 08/07 completed Not Available Not Available Not Available celecoxib 200 mg capsule TAKE 1 CAPSULE BY MOUTH EVERY DAY active Not Available Not Available No t Available amoxicillin 500 mg capsule Take 1 capsule every 8 hours by oral route. active Not Available Not Available No t Available atorvastati n 40 mg tablet TAKE 1 TABLET DAILY active Not Available Not Available No t Available metformin 500 mg tablet TAKE 1 TABLET BY MOUTH TWICE A DAY active Not Available Not Available No t Available venlafaxine ER 75 mg capsule,ext ended release 24 hr TAKE ONE CAPSULE BY MOUTH DAILY active Not Available Not Available No t Available citalopram 40 mg tablet Take 1 tablet every day by oral route. active Not Available Not Available No t Available azithromyci n 250 mg tablet TAKE 2 TABLETS BY MOUTH TODAY, THEN TAKE 1 TABLET DAILY FOR 4 DAYS DIRECTED 01/25 completed Not Available Not Available Not Available miconazole nitrate 2 % topical cream APPLY 1 APPLICATI ON ONTO THE AFFECTED AREA(S) ONCE DAILY IN THE MORNING 08/07 completed Not Available Not Available Not Available ofloxacin 0.3 % eye drops INSTILL 1 DROP INTO RIGHT EYE 4 TIMES A DAY 05/15 completed Not Available Not Available Not Available benzonatate 200 mg capsule TAKE 1 CAPSULE BY MOUTH THREE TIMES A DAY 01/25 completed Not Available Not Available Not Available miconazole nitrate 2 % topical powder APPLY TO THE AFFECTED AREA(S) BY TOPICAL ROUTE 1 TIMES PER DAY IN THE MORNING 08/07 completed Not Available Not Available Not Available clobetasol 0.05 % topical cream APPLY TO RASH ON HANDS AT BEDTIME AND COVER WITH GLOVES FOR UP TO 4 WEEKS, THEN 2 WEEKS OFF 05/15 completed Not Available Not Available Not Available clindamycin HCl 150 mg capsule Take 3 capsules 3 times a day by oral route for 10 days. 2015 active Not Available Not Available Not Avai lable venlafaxine ER 150 mg capsule,ext ended release 24 hr TAKE 1 CAPSULE BY MOUTH EVERY DAY active Not Available Not Available No t Available aspirin 81 mg tablet,juan yed release Take 1 tablet every day by oral route. 05/27 completed Not Available Not Available Not Available sildenafil 100 mg tablet TAKE 1 TAB BY MOUTH ONCE DAILY NEEDED ABOUT 1 HOUR BEFORE SEXUAL ACTIVITY active Not Available Not Available No t Available triamcinolo ne acetonide 0.1 % topical cream APPLY A THIN APPLICATI ON ONTO THE AFFECTED AREA(S) ONCE DAILY AT NIGHT active Not Available Not Available No t Available ciclopirox 8 % topical solution Apply by topical route for 30 days. 08/07 completed Not Available Not Available Not Available oxycodone-a cetaminophe n 5 mg-325 mg tablet TAKE 1 TABLET BY MOUTH EVERY 4 HOURS NEEDED FOR PAIN 08/25 completed Not Available Not Available Not Available terbinafine HCl 250 mg tablet TAKE 1 TABLET BY MOUTH EVERY DAY DIRECTED FOR 14 DAYS 08/07 completed Not Available Not Available Not Available citalopram 20 mg tablet active Not Available Not Available Not Available prednisolon e acetate 1 % eye drops,suspe nsion INSTILL 1 DROP INTO RIGHT EYE 4 TIMES A DAY 05/15 completed Not Available Not Available Not Available lorazepam 0.5 mg tablet active Not Available Not Available Not Available hydrocodone 7.5 mg-acetamin ophen 325 mg tablet 04/15 completed Not Available Not Available Not Available cephalexin 500 mg capsule 08/25 completed Not Available Not Available Not Available cyanocobala min (vit B-12) 1,000 mcg/mL injection solution Inject 1 mL by intramusc ular route. 05/27 completed Not Available Not Available Not Available aspirin 81 mg chewable tablet TAKE 1 TABLET BY MOUTH TWICE A DAY -START DAY AFTER LAST ELIQUIS DOSE 05/15 completed Not Available Not Available Not Available diclofenac sodium 75 mg tablet,juan yed release Take 1 tablet twice a day by oral route. 06/07 completed Not Available Not Available Not Available Levaquin 500 mg tablet Take 1 tablet every 24 hours by oral route. 02/16 completed Not Available Not Available Not Available methylpredn isolone 4 mg tablets in a dose pack Take by oral route as per package insert 02/16 completed Not Available Not Available Not Available ketoconazol e 2 % topical cream APPLY TO THE AFFECTED AREA(S) TOP AND BOTTOM OF FEET BY TOPICAL ROUTE ONCE DAILY AT NIGHT active Not Available Not Available No t Available Senna Plus 8.6 mg-50 mg tablet TAKE 2 TABLETS BY MOUTH TWICE A DAY TO PREVENT CONSTIPAT ION HOLD FOR LOOSE STOOLS 02/22 completed Not Available Not Available Not Available Aspir-81 2012 active Not Available Not Available Not Avai lable Eliquis 2.5 mg tablet 02/22 completed Not Available Not Available Not Available Fluzone Quad (PF) 60 mcg (15 mcg x 4)/0.5 mL IM syringe 02/22 completed Not Available Not Available Not Available Flucelvax Quad (PF) 60 mcg (15 mcg x 4)/0.5 mL IM syringe [facility]ARMACY [facility] 08/23 completed Not Available Not Available Not Available Vitals Date Recorded Body height Body mass index (BMI) Body weight Heart rate Respiratory rate Oxygen saturation Oxygen saturation in Arterial blood by Pulse oximetry Systolic blood pressure Diastolic blood pressure Provider Name and Address Organization Details Last Updated DateTime 3 172.72 cm 31 kg/m2 99481.8 4 g 98 /min 14 /min 98 % 98 % 134 mm[Hg] 76 mm[Hg] Kelsie Mckeon [facility] 3 09:54:15 Date Recorded Body height Body mass index (BMI) Body weight Heart rate Body temperature Oxygen saturation Oxygen saturation in Arterial blood by Pulse oximetry Systolic blood pressure Diastolic blood pressure Provider Name and Address Organization Details Last Updated DateTime 3 172.72 cm 31.1 kg/m2 69819.6 4 g 87 /min 97 [degF] 95 % 95 % 120 mm[Hg] 72 mm[Hg] Reena Pinzon [facility] 3 10:38:07 Date Recorded Body height Body mass index (BMI) Body weight Heart rate Body temperature Oxygen saturation Oxygen saturation in Arterial blood by Pulse oximetry Systolic blood pressure Diastolic blood pressure Provider Name and Address Organization Details Last Updated DateTime 4 172.72 cm 31.6 kg/m2 85724.2 1 g 92 /min 97.9 [degF] 95 % 95 % 118 mm[Hg] 80 mm[Hg] SOM Novoa [facility] 4 11:53:59 Date Recorded Body height Body mass index (BMI) Body weight Heart rate Body temperature Oxygen saturation Oxygen saturation in Arterial blood by Pulse oximetry Systolic blood pressure Diastolic blood pressure Provider Name and Address Organization Details Last Updated DateTime 4 172.72 cm 30.9 kg/m2 37537.2 5 g 90 /min 97 [degF] 95 % 95 % 124 mm[Hg] 80 mm[Hg] SOM Novoa [facility] 4 11:01:16 Date Recorded Body height Body mass index (BMI) Body weight Heart rate Body temperature Oxygen saturation Oxygen saturation in Arterial blood by Pulse oximetry Systolic blood pressure Diastolic blood pressure Provider Name and Address Organization Details Last Updated DateTime 5 172.72 cm 31.2 kg/m2 35421.4 4 g 92 /min 97 [degF] 95 % 95 % 124 mm[Hg] 78 mm[Hg] Reena Pinzon [facility] [employer] [facility] 5 12:09:39 Social History Question Answer Notes LastModified by Organizat ion Details LastModified Time Tobacco Smoking Status Current Every Day Smoker Cata Otis weiss, [facility] [employer] [facility] 05/15/2023 11:44:16 What Is Your Level Of Alcohol Consumption? Occasional Information not available 05/15/2023 Sex: Unknown Functional Status None recorded. Mental Status None recorded. Family History Relationship Description Onset Age of this Age Resolved Age Notes LastModified by Organization Details LastModified Time Mother Diabetes mellitus [email or web address] Not available 2022 11:43:25 Mother Cerebrovascu lar accident [email or web address] Not available 03/2023 11:43:32 Mother Arthritis Not available 05/15/2023 11:43:42 Mother Hypertensive disorder [email or web address] Not available 2022 11:44:04 Notes:Mother 82 yea rs old Mother Hx HTN, DM Father unknown health status No brothers one half sister Medical History Condition Response NERVE DISEASE N BLINDNESS N RHEUMATIC FEVER N KIDNEY STONES N BLADDER PROBLEMS N MRSA N OTHER # 1 N POLIO N LUNG DISEASE/DISORDER N HISTORY OF DRUG ABUSE N RADIATION / CHEMOTHERAPY N COPD N Other # 2 N BLOOD DISEASES N EAR OR HEARING PROBLEMS N MUMPS N SHINGLES N BOWEL PROBLEMS N DEPRESSION (INCLUDING POST ) Y STROKE/TIA N ULCERS N BENIGN PROSTATIC HYPERPLASIA N MEASLES N HYPOTENSION N MYOCARDIAL INFARCTION N OBESITY N GERD/NAUSEA N ANEURYSM N URINARY/BLADDER/KIDNEY PROBLEMS N CORONARY ARTERY DISEASE (CAD) N ADDICTION CONCERNS N ENDOMETRIOSIS N Impotence N USE OF BLOOD THINNERS N SKIN PROBLEMS N GASTROINTESTINAL DISORDER N PERIPHERAL VASCULAR DISEASE N MUSCLE,JOINT OR BONE PROBLEMS N GASTROINTESTINAL BLEEDING N BLOOD CLOTS N ASTHMA N CATARACTS N ERECTILE DYSFUNCTION N VARICOSITIES N GI PROBLEMS N Low Testosterone N INFERTILITY N AIDS/HIV N CHEMOTHERAPY / RADIATION N LIVER DISEASE N MALE HYPOGONADISM N HYPERTENSION N Deficiency N TOURETTE'S N ANXIETY DISORDER N BLOOD TRANSFUSION N ANEMIA/BLOOD DISORDER N CHRONIC EAR INFECTIONS N BRONCHITIS N TUBERCULOSIS N GLAUCOMA N FOOT PROBLEM N DIVERTICULITIS N CHICKENPOX N SLEEP APNEA N INFECTIOUS DISEASE N HEART ARRHYTHMIA N PROSTATE N INSOMNIA N HIGH CHOLESTEROL / HYPERLIPIDEMIA Y HYPERTHYROIDISM N EYE PROBLEMS N EDEMA N CHRONIC PAIN SYNDROME N HYPOTHYROIDISM N CAROTID BLOCKAGE N CONSTIPATION N BACK / NECK PROBLEMS N HAVE YOU BEEN HOSPITALIZED OR SEEN IN [facility] ER IN THE PAST YEAR ? N ATHEROSCLEROSIS N BREAST PROBLEMS N DIALYSIS N ECZEMA N OSTEOPOROSIS N ARTHRITIS Y NO SIGNIFICANT PAST MEDICAL HISTORY N APPENDICITIS N DIABETES, TYPE Y BAD TEETH N ENT N HEARTBURN / REFLUX N AUTISM SPECTRUM DISORDER (ASD) N HEPATITIS / LIVER DISEASE N GOUT N SLEEP DISORDER N ALZHEIMER'S DISEASE N Brain Problems N HERPES N DEMENTIA N HEADACHES/MIGRAINES N SEIZURES/EPILEPSY N VASCULAR DISEASE N PACEMAKER N Blood Disorder N DIZZINESS N HEART DISEASE/HEART PROBLEMS N KIDNEY DISEASE N MULTIPLE SCLEROSIS N CARDIAC ARRHYTHMIA N CANCER: SPECIFY N ATRIAL FIBRILLATION N Gall Stones N PULMONARY EMBOLISM N AUTOIMMUNE DISEASE N Immunizations Vaccine Type Date Status Note Provider Nam e and Address Organization Details Recorded Time SARS-COV-2 (COVID-19) vaccine, UNSPECIFIED 1 completed Not Available [facility] 08/19/2023 08:14:30 SARS-COV-2 (COVID-19) vaccine, UNSPECIFIED 1 completed Not Available [facility] 08/19/2023 08:14:30 COVID-19, mRNA, LNP-S, PF, 30 mcg/0.3 mL dose 1 completed Not Available [facility] 08/19/2023 08:14:30 Influenza, high-dose, trivalent, PF 7 completed Not Available [facility] 08/19/2023 08:14:30 Influenza, high-dose, trivalent, PF 7 completed Not Available [facility] 08/19/2023 08:14:30 Influenza, split virus, quadrivalent, PF 2 completed Not Available [facility] 08/19/2023 08:14:30 Influenza, split virus, quadrivalent, PF 1 completed Not Available [facility] 08/19/2023 08:14:30 Influenza, high-dose, quadrivalent, PF 3 completed Bebeto Clarke MD [address] [place] [address], [address], [address], [place] [facility] 08/07/2023 10:58:24 Influenza, high-dose, trivalent, PF 4 completed Bebeto Clarke MD [address] [facility], [place], [address], [facility] 08/12/2024 11:26:16 Past Encounters Encounter ID Performer Location Encounter Start Date Encounter Closed Date Diagnosis/Indication Diagnosis SNOMED-CT Code Diagnosis ICD10 Code Diagnosis Note [id number] [facility] [address] [address] 12/27/2020 00:00:00 12/27/2020 17:48:04 [id number] [facility] [address] [address] 07/04/2021 00:00:00 07/04/2021 16:57:04 [id number] [facility] [address] [facility] [address] [place] [address] 01/10/2022 00:00:00 01/10/2022 11:37:39 [id number] [facility] [address] [address] 07/11/2022 00:00:00 07/11/2022 11:40:02 [id number] Bebeto Clarke MD [facility] [address] [address] 01/29/2023 10:50:42 01/29/2023 11:15:47 Pure hypercholesterolemia 635218010 E78.00 Type 2 zoila betes mellitus 41326959 E11.9 Depressive disorder 3548 9007 F32.9 Obese class I 4505422178 00898 E66.9 Disorder of prostate 302 42773 N42.9 [id number] Khari Dozier DPM [facility] [place] [address] [facility], [address] [place] [address] 05/15/2023 11:39:38 05/15/2023 14:56:22 Tinea pedis 8738939 B35.3 bilateral feeteducat ed on foot hygieneedu cated on shoe hygienerec ommend changing socks multiple times throughout the day feeder sweating, recommend putting his boots on a boot stock drier tender to prevent moistness within the bootfollow -up in 2 weeks if not resolved Hammer toe 557395505 M20 .41 M20.42 bilateral feet 2 through 5 worse to the lefteducat ed on treatment optionspat ient defers surgery at this timecontin ue with conservati ve offloading to prevent wounds infection check feet dailyFollo w-up as needed Callosity on toe 9489145 01 L84 left 2nd toe- due to hammertoed ebrided without incidentre commend conservati ve therapy at this time with toe crest pad or silicone offloading toe cap Onychomyco sis of toenails 074170707 B35.1 educated on treatment optionswil l try topical antifungal medication follow-up in 3 months [id number] Khari Dozier DPM [facility] [facility] Podiatry [address], [facility] 4 [place] [address] 7 06/26/2023 09:34:20 06/26/2023 11:17:28 Tinea pedis 1947282 B35.3 bilateral feeteducat ed on foot hygieneedu cated on shoe hygienerec ommend changing socks multiple times throughout the day feeder sweating, recommend putting his boots on a boot stock drier tender to prevent moistness within the bootfollow -up in 2 weeks if not resolved Onychomyco sis of toenails [id number] B35.1 educated on treatment optionswil l try topical antifungal medication Debridemen t of toenails- order FRANCIA and fungal culturefol low-up in 2 month [id number] Khari Dozier DPM [facility] Podiatry [address], [facility] [address] 7 07/24/2023 09:49:56 07/24/2023 10:45:52 Onychomycosis of toenails [id number] B35.1 may continue over-the-c ounter treatfaile d topical ketoconazo ledoes not want to pay for oral terbinafin e and take medication s secondary to side effects Tinea pedis [id number] B35. 3 bilateral feeteducat ed on foot hygieneedu cated on shoe hygienerec ommend changing socks multiple times throughout the day feeder sweating, recommend putting his boots on a boot stock drier tender to prevent moistness within the bootfollow -up in 2 weeks if not resolved Xerosis du e to atopic dermatitis [id number] L85.3 [id number] Bebeto Clarke MD [facility] Internal Med [facility] [address] [address] 08/07/2023 10:25:29 08/07/2023 10:56:39 Administration of influenza vaccine [id number] Z23 Adult [facility] th examination 044737169 Z00.00 Depression screening 171 609300 Z13.31 Pure hypercholesterolemia 734711171 E78.00 Type 2 zoila betes mellitus 08631594 E11.9 [id number] Bebeto Clarke MD [facility] Internal Med [facility] [address] [address] 01/26/2024 11:48:18 01/26/2024 12:13:14 Pure hypercholesterolemia 269281661 E78.00 Type 2 zoila betes mellitus 98190819 E11.9 Obese class I [id number] 61627 E66.9 Depressive disorder 3548 9007 F32.9 Disorder of prostate 302 61315 N42.9 [id number] Bebeto Clarke MD [facility] Internal Med [facility] [address] [address] 08/12/2024 10:49:18 08/12/2024 11:34:58 Administration of influenza vaccine 96159998 Z23 Diabetes mellitus 579505 09 E11.9 Pure hypercholesterolemia 281208959 E78.00 Depressive disorder 3548 9007 F32.9 Obese class I 9638906134 36079 E66.9 [id number] Bebeto Clarke MD [facility] Primary Care [address] [place] [address] 11/18/2024 11:52:26 11/18/2024 12:50:39 Testicular mass 66524665 N50.89 Pure hypercholesterolemia 869501148 E78.00 Type 2 zoila betes mellitus 84519378 E11.9 Obese class I [id number] 59868 E66.9 Health Concerns Section Related Observation LastModified by Organization Detai ls LastModified Time None Recorded Concern Status LastModified by Organization Details LastModified Time None Recorded Advance Directives Directive None Recorded Payers Encounter Date Sequence Insurance Name Policy Number Policy Montalvo Covered Member ID Montalvo Member ID Guarantor Name 07/24/2023 1 [facility] [id number] Ryan Horton [id number] Ryan Horton 08/07/2023 1 [facility] [id number] Ryan Horton [id number] Ryan Horton 01/26/2024 1 [employer] (POS) [id number] Ryan Horton [id number] Ryan Horton 08/12/2024 1 [facility] (MEDICARE REPLACEMENT /ADVANTAGE - HMO) [id number] Ryan Ervin Horton [id number] Ryan Horton 11/18/2024 1 [facility] (MEDICARE REPLACEMENT /ADVANTAGE - HMO) [id number] Ryan Ervin Horton [id number] Ryan Horton Notes Date Note Type Note Provider Name and Address Organization Details Recorded Time 3 text/html . Patient is a 63-year-old male who returns the office for follow-up on onychomycosis of his toenails and rash of the dorsal feet. Patient states the rash has improved with use of the ketoconazole but continues to be present. Patient has itching that is severe nature to the top of his feet and he is likely causing re-injury and infection to the area secondary to excoriation from itching. Discussed referral to Dermatology. Patient states he has been to Dermatology and will follow up with their office. Patient was unable to take oral terbinafine as his insurance. Khari Dozier, DPChago [address], [facility] [address], [place], [address], [facility] [employer] 07/24/2023 10:24:11 3 text/html Patient Name: Ryan HortonKanete Of Service: July ( 08.07.2023 ): 1960 Age: 63 There has been approximately a .5 lb weight loss since 01/29/2023. This represents approximately a .2% change in weight. Weight change attributable to lifestyle changes. Vital Signs:Blood Pressure: Sitting Rt. Arm 120/72Pulse: Sitting 87 /min and RegularRespiratory Rate: 12Height 68 in or 1.7 mWeight 204 lb or 92.5 kgBMI 31.0Temperature: 97 F or 36.1 CDCCT HAIC: 5.4 Calculated MB mg%Pulse Oximetry: 95 % at rest on no oxygen Chief Complaint: Addressed in HPI Problems or conditions discussed in the HPI were the only ones reviewed during the encounter.Only social and family history addressed in the HPI were reviewed during this encounter. Attendant(s): NoneConstitutional and Systemic Symptoms:none Medication Reconciliation: from medication list. History of Present Illness In for a well patient check up. Last well patient evaluation was approximately one year. No interval complaints of any new major medical problems. No hx of any chest pain, shortness of breath, nausea, vomiting, diarrhea or constitutional symptoms.PSA already performedColonoscopy or Cologuard: not dueImmunizations Up To Date or refuses to takeNo Significant Change In Family HxFall Risk normalDepression Score: 0Hearing normalVisual normalReviewed Smoking and Drug HistoryReviewed Immunization HistoryInstructed on importance of weight on diabetes, heart and other diseases aggravated by obesity.Instructed on importance of weight on diabetes, heart and other diseases aggravated by obesity. #1. Type I Hypercholesterolaemia: Currently taking medication and tolerating well. No interval complaints of any muscle pain or arthralgia. No significant liver changes with medications. Last lipid panel: fair control. Therapy reviewed regarding treatment of cholesterol management and include diet and Lipitor. #2. Type II Diabetes: Has had no polyuria polyphagia or polydipsia. Has had no hypoglycemic like responses. No new history of any numbness, tingling, weakness or visual problems. No nausea, anorexia or other constitutional symptoms. There has been no foot problems or non healing lesions. The last HAIC was DCCT HAIC: 5.4 Calculated MB mg%. Average blood sugars 125-150 mg%. Checking sugars : several times a week Medication Types Include: Metformin Secondary complications include none. Macro-vascular complications include none. Therapy reviewed regarding diabetic management and include Glucophage Compliance: good Renal Protection: not required at this stage Lipid management: statins Urinary microalbumin: A1 . Ophthalmological: has seen eye doctor within the last year #3. Hx of obesity. Currently Class 1 Obesity BMI 30-34.99. Has tried numerous dietary support and supplements with no benefit. Instructed on the health consequences of the obese status particularly cancer - diabetes and heart disease. Discussed new modalities of weight loss including GLP-1 medications that are used to treat diabetes. Potential candidate for bariatric surgery: No. Wishes to be evaluated by Dietary: No and was offered to be evaluated and instructed by dairy powder mixer operator on weight loss diet.Medication List Reviewed and Reconciled 3Glucophage 500 MG (TABLET - ORAL) One BidAspirin 81 MG One Daily For Vascular ProphylaxisLipitor 40 MG (TABLET - ORAL) Once Daily For CholesterolEffexor Xr 150 MG (CAPSULE, EXTENDED RELEASE - ORAL) One Daily For Anxiety And DepressionCelebrex 200 MG (CAPSULE - ORAL) One DailyVaccination and Xzzayynjbvbt9904-69 Yjumczuth3809-85 CovPlugaroundSurgical HistoryRt. Cataract and Macular Hole, Rt. TKA, Rt. CTS, Perirectal AbscessPreventative Testing Confirmed by Our Bvwcmiv7603/06/2023 ALBUMIN 4.0 G/DL N003/06/2023 PSA 0.58 NG/ML N003/06/2023 MICRO ALBUMIN 0.8 MG/DL N003/06/2023 HAIC 5.4 % OF TOTAL HGB N011/14/2022 LETTER RTDTIAHOAVQKY05/20/2022 LETTER DMMBCPQUU06/30/2018 COLONOSCOPY (5 YEARS) 01/05/2023Social HistorySmoking Hx: 1 of cigarettes per day for 5 years. Drinking Hx: < 6 beers per week, 3 Cups of coffee per day, 1 Cup of tea per day, < 6 cans of soft drinks per day.Exercise: RegularlySexual Hx: Sexually ActiveOccupation: General LaborFamily HistoryMother 82 years oldMother Hx: HTN, DMFather unknown health statusNo brothers one half sister Bebeto Clarke MD [address], [facility] [address], [place], [address], [place] [facility] [employer] 08/07/2023 10:58:39 4 text/html Patient Name: Ryan HortonKanete Of Service: Friday ( 01.26.2024 ): 1960 Age: 64 There has been approximately a 4 lb weight gain since 08/07/2023. This represents approximately a 2.0% change in weight. Weight change attributable to lifestyle changes. Vital Signs:Blood Pressure: Sitting Rt. Arm 118/80Pulse: Sitting 92 /min and RegularRespiratory Rate: 12Height 68 in or 1.7 mWeight 208 lb or 94.3 kgBMI 31.6Temperature: 97.9 F or 36.6 CPulse Oximetry: 95 % at rest on no oxygen Chief Complaint: Addressed in HPI Problems or conditions discussed in the HPI were the only ones reviewed during the encounter.Only social and family history addressed in the HPI were reviewed during this encounter. Attendant(s): NoneConstitutional and Systemic Symptoms:none Medication Reconciliation: from medication list. History of Present Illness #1. Type II Hypercholesterolaemia: Currently taking medication and tolerating well. No interval complaints of any muscle pain or arthralgia. No significant liver changes with medications. Last lipid panel: fair control. Therapy reviewed regarding treatment of cholesterol management and include diet and Lipitor. #2. Type II Diabetes: Has had no polyuria polyphagia or polydipsia. Has had no hypoglycemic like responses. No new history of any numbness, tingling, weakness or visual problems. No nausea, anorexia or other constitutional symptoms. There has been no foot problems or non healing lesions. The last HAIC was DCCT HAIC: 5.4 Calculated MB mg%. Average blood sugars 116-125 mg%. Checking sugars : infrequently Medication Types Include: Metformin Secondary complications include none. Macro-vascular complications include none. Therapy reviewed regarding diabetic management and include Glucophage Compliance: excellent Renal Protection: not required at this stage Lipid management: statins Urinary microalbumin: A1 . Ophthalmological: has seen eye doctor within the last year #3. Hx of obesity. Currently Class 1 Obesity BMI 30-34.99. Has tried numerous dietary support and supplements with no benefit. Instructed on the health consequences of the obese status particularly cancer - diabetes and heart disease. Discussed new modalities of weight loss including GLP-1 medications that are used to treat diabetes. Potential candidate for bariatric surgery: No. Wishes to be evaluated by Dietary: No and was offered to be evaluated and instructed by dairy powder mixer operator on weight loss diet.#4. Depression clinically stable currently taking the Effexor XR 150 mg daily and doing well. No interval complaints of any exacerbation of symptoms. There is no suicidal ideation. No crying spells. Overall is doing well. Active Medication ListGlucophage 500 MG (TABLET - ORAL) One BidAspirin 81 MG One Daily For Vascular ProphylaxisLipitor 40 MG (TABLET - ORAL) Once Daily For CholesterolEffexor Xr 150 MG (CAPSULE, EXTENDED RELEASE - ORAL) One Daily For Anxiety And DepressionCelebrex 200 MG (CAPSULE - ORAL) One Daily Vaccination and Cylkfvfrxedq1987-93 Atodhoybc7397-80 Covid [employer] Uzgfiwr9233-46 Rt. Cataract and Macular Tgdm1341-41 Rt. VLN5285-04 Rt. PDJ0791-32 Perirectal Abscess Preventative Voplgdc3810/07/2023 LFQUJCSEO22/29/2023 ALBUMIN 4.0 G/DL N003/06/2023 PSA 0.58 NG/ML N003/06/2023 MICRO ALBUMIN 0.8 MG/DL N003/06/2023 HAIC 5.4 % OF TOTAL HGB N011/14/2022 IYMZJTRONLCOB76/30/2018 COLONOSCOPY (5 YEARS) 01/05/2023 Social HistorySmoking Hx: 1 of cigarettes per day for 5 years. Drinking Hx: < 6 beers per week, 3 Cups of coffee per day, 1 Cup of tea per day, < 6 cans of soft drinks per day.Exercise: RegularlySexual Hx: Sexually ActiveOccupation: Group Social Worker Family HistoryMother 82 years oldMother Hx: HTN, DMFather unknown health statusNo brothers one half sister TEST RESULT RANGE UNITSLIPID PANEL, STANDARD Date: 03/06/2023HOLESTEROL, TOTAL 143 <200 MG/DLHDL CHOLESTEROL 45 > OR = 40 MG/DLTRIGLYCERIDES 98 <150 MG/DLLDL-CHOLESTEROL 80 MG/DL (CALC)HEMOGLOBIN A1C Date: 03/06/2023HEMOGLOBIN A1C 5.4 <5.7 % OF TOTAL HGBCOMPREHENSIVE METABOLIC PANEL Date: 03/06/2023SODIUM 137 135-146 MMOL/LPOTASSIUM 4.1 3.5-5.3 MMOL/LGLUCOSE 95 65-99 MG/DLUREA NITROGEN (BUN) 16 7-25 MG/DLCREATININE 0.70 0.70-1.35 MG/DLEGFR 102 > OR = 60 ML/MIN/1.94W6UZRFMWNS PHOSPHATASE 105 35-144 U/LAST 15 10-35 U/LALT 20 9-46 U/L Bebeto Clarke MD [address], [place], [address], [place] [facility] [place] [facility] 01/26/2024 12:09:28 4 text/html Patient Name: Ryan Rodriguez Of Service: August ( 08.12.2024 ): 1960 Age: 64 There has been approximately a 5 lb weight loss since 01/26/2024. This represents approximately a 2.4% change in weight. Weight change attributable to lifestyle changes. Vital Signs:Blood Pressure: Sitting Rt. Arm 123/80Pulse: Sitting 90 /min and RegularRespiratory Rate: 16Height 68 in or 1.7 mWeight 203 lb or 92.1 kgBMI 30.9Temperature: 97 F or 36.1 CPulse Oximetry: 95 % at rest on no oxygen Chief Complaint: Addressed in HPI Problems or conditions discussed in the HPI were the only ones reviewed during the encounter.Only social and family history addressed in the HPI were reviewed during this encounter. Attendant(s): NoneConstitutional and Systemic Symptoms:none Medication Reconciliation: from medication list. History of Present Illness #1. Type II Diabetes: Has had no polyuria polyphagia or polydipsia. Has had no hypoglycemic like responses. No new history of any numbness, tingling, weakness or visual problems. No nausea, anorexia or other constitutional symptoms. There has been no foot problems or non healing lesions. The last HAIC was DCCT HAIC: 5.8 Calculated MB mg%. CGM: No. Average blood sugars 116-125 mg%. Checking sugars : several times a week. Medication Types Include: Metformin Secondary complications include none. Macro-vascular complications include none. Therapy reviewed regarding diabetic management and include Glucophage Compliance: good Renal Protection: not required at this stage Lipid management: statins Urinary microalbumin: A1 . Ophthalmological: has seen eye doctor within the last year. Control: Below 6.2 #2. Type I Hypercholesterolaemia: Currently taking medication and tolerating well. No interval complaints of any muscle pain or arthralgia. No significant liver changes with medications. Last lipid panel: excellent control. Therapy reviewed regarding treatment of cholesterol management and include diet and Lipitor. #3. Hx of depression currently stable. Pharmacological treatment : Effexor Xr . Suicidal thoughts or ideas: None Loss of appetite: No Sleep Disturbance: No Hallucinations: No Is currently seeing no one. Discussed possibility of decreasing and weaning off medication. Feels that current regimen is working fine and wishes not to change the current treatment regimen. No contraindication to continue current therapy. #4. Hx of obesity. Currently Class 1 Obesity BMI 30-34.99. Has tried numerous dietary support and supplements with no benefit. Instructed on the health consequences of the obese status particularly cancer - diabetes and heart disease. Discussed other modalities of weight loss no . Potential candidate for bariatric surgery: No. Wishes to be evaluated by Dietary: Yes. Active Medication ListGlucophage 500 MG (TABLET - ORAL) One BidAspirin 81 MG One Daily For Vascular ProphylaxisLipitor 40 MG (TABLET - ORAL) Once Daily For CholesterolEffexor Xr 150 MG (CAPSULE, EXTENDED RELEASE - ORAL) One Daily For Anxiety And DepressionCelebrex 200 MG (CAPSULE - ORAL) One Daily Vaccination and Immunization( ) 2023- INFLUENZA(X) 2020- COVVersartis Surgical Qyktdaa1932-57 Rt. Cataract and Macular Usnp5888-08 Rt. UZQ3170-85 Rt. KAO0544-72 Perirectal Abscess Preventative Testing( ) 02/17/2024 Albumin 4.0 G/DL N( ) 02/17/2024 PSA 0.85 NG/ML N 02/16/2026( ) 02/17/2024 Micro Albumin 0.6 MG/DL N( ) 02/17/2024 HAIC 5.8 % OF TOTAL HGB H( ) 10/07/2023 Optometry( ) 11/14/2022 Ophthalmology(X) 01/05/2018 Colonoscopy (5 Years) 01/05/2023 Social HistorySmoking Hx: 1 of cigarettes per day for 5 years. Drinking Hx: < 6 beers per week, 3 Cups of coffee per day, 1 Cup of tea per day, < 6 cans of soft drinks per day.Exercise: RegularlySexual Hx: Sexually ActiveOccupation: Group Social Worker Family HistoryMother 82 years oldMother Hx: HTN, DMFather unknown health statusNo brothers one half sister TEST RESULT RANGE UNITSCBC (INCLUDES DIFF/PLT) Date: 02/17/2024WHITE BLOOD CELL COUNT 7.5 3.8-10.8 THOUSAND/ULHEMOGLOBIN 16.4 13.2-17.1 G/DLHEMATOCRIT 50.3 38.5-50.0 %PLATELET COUNT 271 140-400 THOUSAND/ULCOMPREHENSIVE METABOLIC PANEL Date: 02/17/2024SODIUM 140 135-146 MMOL/LPOTASSIUM 4.0 3.5-5.3 MMOL/LGLUCOSE 98 65-99 MG/DLUREA NITROGEN (BUN) 11 7-25 MG/DLCREATININE 0.73 0.70-1.35 MG/DLEGFR 100 > OR = 60 ML/MIN/1.74M6KEUUIYNW PHOSPHATASE 113 35-144 U/LAST 17 10-35 U/LALT 20 9-46 U/LHEMOGLOBIN A1C Date: 02/17/2024HEMOGLOBIN A1C 5.8 <5.7 % OF TOTAL HGBLIPID PANEL, STANDARD Date: 02/17/2024HOLESTEROL, TOTAL 149 <200 MG/DLHDL CHOLESTEROL 46 > OR = 40 MG/DLTRIGLYCERIDES 126 <150 MG/DLLDL-CHOLESTEROL 80 MG/DL (CALC)PSA, TOTAL Date: 02/17/2024SA, TOTAL 0.85 < OR = 4.00 NG/MLT4, FREE Date: 02/17/2024T4, FREE 1.0 0.8-1.8 NG/DLTSH Date: 02/17/2024TSH 1.84 0.40-4.50 MIU/LALBUMIN, RANDOM URINE W/CREATININE Date: 02/17/2024LBUMIN, URINE 0.6 SEE NOTE: MG/DLALBUMIN/CREATININE RATIO, RANDOM URINE 5 <30 MG/G AGNES Clarke MD [address], [facility] [address], [place], [address], [place] [facility] 08/12/2024 11:32:06 5 text/html Patient Name: Ryan Guzmanthais Of Service: November ( 11.18.2024 ): 1960 Age: 64 There has been approximately a 2 lb weight gain since 08/12/2024. This represents approximately a 1.0% change in weight. Weight change attributable to lifestyle changes. Vital Signs:Blood Pressure: Sitting Rt. Arm 124/78Pulse: Sitting 92 /min and RegularRespiratory Rate: 16Height 68 in or 1.7 mWeight 205 lb or 93.0 kgBMI 31.2Temperature: 97 F or 36.1 CDCCT HAIC: 5.8 Calculated MB mg%Pulse Oximetry: 95 % at rest on no oxygen Chief Complaint: lump in testicular area Problems or conditions discussed in the HPI were the only ones reviewed during the encounter.Only social and family history addressed in the HPI were reviewed during this encounter. Attendant(s): NoneConstitutional and Systemic Symptoms:none Medication Reconciliation: from medication list. History of Present Illness #1. Complaining of a small lump in the right testicular area. On examination there appears to be a small epididymal cyst. There is also a intra cutaneous scrotal mass unchanged in size which is likely more of a cyst. No interval complaints of any other adenopathy or any pain or discomfort. I recommend that we simply observe at this time but will get a ultrasound of the right testicular area to rule out any other associated abnormalities anatomically.: #2. Type I Hypercholesterolaemia: Currently taking medication and tolerating well. No interval complaints of any muscle pain or arthralgia. No significant liver changes with medications. Last lipid panel: fair control. Therapy reviewed regarding treatment of cholesterol management and include diet and Lipitor. #3. Type II Diabetes: Has had no polyuria polyphagia or polydipsia. Has had no hypoglycemic like responses. No new history of any numbness, tingling, weakness or visual problems. No nausea, anorexia or other constitutional symptoms. There has been no foot problems or non healing lesions. [facility].8 Calculated MB mg%. CGM: No. Average blood sugars unknown. Checking sugars : infrequently. Medication Types Include: Metformin Secondary complications include none. Macro-vascular complications include none. Therapy reviewed regarding diabetic management and include Glucophage Compliance: good Renal Protection: not required at this stage Lipid management: statins Urinary microalbumin: A1 . Ophthalmological: has seen eye doctor within the last year. Control: Below 6.2 #4. Hx of obesity. Currently Class 1 Obesity BMI 30-34.99. Has tried numerous dietary support and supplements with no benefit. Instructed on the health consequences of the obese status particularly cancer - diabetes and heart disease. Discussed other modalities of weight loss no . Potential candidate for bariatric surgery: No. Wishes to be evaluated by Dietary: No and was offered to be evaluated and instructed by dairy powder mixer operator on weight loss diet. Active Medication ListGlucophage 500 MG (TABLET - ORAL) One BidAspirin 81 MG One Daily For Vascular ProphylaxisLipitor 40 MG (TABLET - ORAL) Once Daily For CholesterolEffexor Xr 150 MG (CAPSULE, EXTENDED RELEASE - ORAL) One Daily For Anxiety And DepressionCelebrex 200 MG (CAPSULE - ORAL) One Daily Vaccination and Immunization( ) 2023- INFLUENZA(X) 2021-01 COVID [employer] Surgical Rjzgoqt8482-97 Rt. Cataract and Macular Fiwj8019-95 Rt. EIG8061-25 Rt. YHA9145-04 Perirectal Abscess Preventative Testing( ) 08/31/2024 HAIC 5.8( ) 02/17/2024 Albumin 4.0 G/DL N( ) 02/17/2024 PSA 0.85 NG/ML N 02/16/2026( ) 02/17/2024 Micro Albumin 0.6 MG/DL N( ) 10/07/2023 Optometry( ) 11/14/2022 Ophthalmology(X) 01/05/2018 Colonoscopy (5 Years) 01/05/2023 Social HistorySmoking Hx: 1 of cigarettes per day for 5 years. Drinking Hx: < 6 beers per week, 3 Cups of coffee per day, 1 Cup of tea per day, < 6 cans of soft drinks per day.Exercise: RegularlySexual Hx: Sexually ActiveOccupation: Group Social Worker Family HistoryMother 82 years oldMother Hx: HTN, DMFather unknown health statusNo brothers one half sister Bebeto Clarke MD [address], [address], [place], [address], [place] [facility] [employer] 11/18/2024 12:33:50
--- OUTSIDE RECORDS SUMMARY | 2024-11-29 18:28 | XMS_ITS | CONTINUITY OF CARE DOCUMENT ---
Author Name zac frank Address Unknown Organization [facility] Address [address] [place] [address] Phone [phone] Care Team Providers Care Biblical Studies Professor Name Role Phone Holly Leija MD Unavailable SAMSON ESPINOZA MD Unavailable INSURANCE PROVIDERS Payer name Policy type / Coverage type [place] red libertarian ID [facility] [id number] Other [id number]
--- OUTSIDE RECORDS SUMMARY | 2024-11-29 18:28 | XMS_ITS | Encounter Summary ---
Author Organization [facility] Address [facility] [place] [address] Care Team Providers Care Casino Host Name Role Phone Bebeto Clarke MD Primary Care Provider [phone] Encounter Details Date Type Department Care Team (Late st Contact Info) Description 07/12/2017 [place] [address] , Generic ConversionMD Social History Tobacco Use Types Packs/Day Years Used Date Smoking Tobacco: Never Assessed Sex and Gender Information Value Date Recorded Sex Assigned at Not on file Legal Sex Male 7:54 PM CDT Gender Identity Not on file Sexual Orientation Not on file documented as of this encounter Plan of Treatment Not on file documented as of this encounter Visit Diagnoses Not on filedocumented in this encounter Care Teams Casino Host Relationship Specialty Start Date End Date Bebeto Clarke MD [address] [id number] PCP - General 04/02/15 documented as of this encounter
--- OUTSIDE RECORDS SUMMARY | 2024-11-29 18:28 | XMS_ITS | Clinical Summary ---
Author Organization [facility] Address [address] [place] [id number] Care Team Providers Care Cable Splicer Apprentice Name Role Phone Bebeto Clarke MD Primary Care Provider [phone] Social History Tobacco Use Types Packs/Day Years Used Date Smoking Tobacco: Never Assessed Sex and Gender Information Value Date Recorded Sex Assigned at Not on file Legal Sex Male 7:54 PM CDT Gender Identity Not on file Sexual Orientation Not on file Plan of Treatment Health Maintenance Due Date Last Done Comments Colorectal Cancer Screening Colonoscopy (10 Years) 1960 Hepatitis C 01/09/1976 DTaP, Tdap and Td Vaccines ( 1 - Tdap) 1977 Zoster Vaccines (1 of 2) 01/09/2008 Pneumococcal Vaccine: 65+ Ye ars (1 of 1 - PCV) 2023 COVID-19 Vaccine ( - 2023-2 5 season) 2024 Influenza Adult (#1) 2024 RSV Immunization or 60+ Years (1 - 1-dose 75+ series) 2033 Meningococcal B Vaccine Aged Out No l onger eligible based on patient's age to complete this topic Meningococcal Vaccine Aged Out No jessica kenna eligible based on patient's age to complete this topic RSV Immunizations Under 20 Months Aged Out No longer eligible based on patient's age to complete this topic Care Teams Cable Splicer Apprentice Relationship Specialty Start Date End Date Bebeto Clarke MD [address] [phone] PCP - General 04/02/15
== END 2024-11-29 16:13 | disposition home or self-care (01) ==
PROVIDERS: PCP Internal Medicine; Visit Provider Internal Medicine
DX: N50.89 Other specified disorders of the male genital organs (principal); N50.3 Cyst of epididymis
CPT/HCPCS: 76870; 93976

== ENCOUNTER 2025-06-14 11:37 | Outpatient (CLI) | payer MEDICARE, SELFPAY ==
--- NOTE | ~2025-06-14 | XR_ITS ---
EXAMINATION: XR knee RT 3V, 06/14/2025 12:00 CDT HISTORY: 5 YEAR FOLLOW UP RT KNEE REPLACEMENT COMPARISON: No comparisons available. Findings: No acute fracture or malalignment. Right prosthesis intact. Moderate left-sided tricompartmental degenerative changes with small effusion Soft tissues unremarkable. Impression: No acute fracture or malalignment. Reviewed, dictated and finalized at location P. Impression: No acute fracture or malalignment.
== END 2025-06-14 11:38 | disposition home or self-care (01) ==
PROVIDERS: PCP Internal Medicine; Visit Provider Orthopaedic Surgery
DX: M25.561 Pain in right knee (principal)
CPT/HCPCS: 73562